=== PATIENT | female | born 1965 | race Caucasian/White ===

== ENCOUNTER 2020-04-20 15:13 | Inpatient (IN) | payer OTHER ==
[2020-04-20] VITALS (10 sets, daily range): BP systolic 107–162; BP diastolic 68–100; BMI 16.5
[~2020-04-20] VITALS: Ht 157.5 cm; Wt 45.5 kg
[2020-04-20] MEDS ORDERED: XANAX0.5 MG PO (15:44)
[2020-04-20] MEDS ORDERED: LISINOPRIL40 MG PO (15:44)
[2020-04-20] MEDS ORDERED: PROCARDIA XL60 MG PO (15:44)
[2020-04-20] MEDS ORDERED: CATAPRES0.2 MG PO (15:44)
[2020-04-20 15:59] LABS: BASOPHILS 0.2 % (0-2); EOSINOPHILS 0.9 % (0-7); HEMATOCRIT 48.8 % (36.0-48.0); HEMOGLOBIN 13.9 g/dL (12-16); IMMATURE GRANULOCYTES 0.2 % (0-5); LYMPHOCYTES 16.6 % (15-50); MCH 29.4 pg (26.0-34.0); MCHC 28.5 g/dL (31.0-37.0); MCV 103.4 fL (80.0-100.0); MEAN PLATELET VOLUME 10.2 fL (7.4-10.4); MONOCYTES 3.9 % (2-11); NEUTROPHILS 78.2 % (40-80); PLATELET COUNT 303 10x3/uL (130-400); RBC 4.72 10x6/uL (4.00-5.40); RDW 15.4 % (11.5-14.5)
[2020-04-20 16:17] LABS: APTT 30.8 SECONDS (22.8-39.4); INR 0.87 (0.85-1.17); PROTIME 11.8 SECONDS (11.6-15.0)
[2020-04-20 16:22] LABS: CALC OSMOLALITY 285 mosm/kg (275-300); CALCIUM 8.6 mg/dL (8.5-10.1); CHLORIDE - SERUM 103 mmol/L (98-107); GLUCOSE 164 mg/dL (74-106); POTASSIUM - SERUM 3.8 mmol/L (3.5-5.1); SODIUM 141 mmol/L (136-145); UREA NITROGEN 15 mg/dL (7-18); eGFR NON AFRICAN AMERICAN 62 mL/min (90-120)
[2020-04-20 16:32] LABS: ALBUMIN 3.1 g/dL (3.4-5.0); ALKALINE PHOSPHATASE 152 U/L (30-120); ALT (SGPT) 25 U/L (10-68); BILIRUBIN - TOTAL 0.21 mg/dL (0.2-1.3); CKMB 1.3 U/L (0.0-3.6); CREATINE KINASE 37 UL (21-215); PRO BNP 1638 pg/mL (0-125); PROTEIN - SERUM 7.5 g/dL (6.4-8.2); TROPONIN-I < 0.017 ng/mL (0.000-0.060)
[2020-04-20 18:01] LABS: THYROID STIMULATING HORMONE 1.01 uIU/mL (0.36-3.74)
[2020-04-21] VITALS (15 sets, daily range): BP systolic 95–160; BP diastolic 55–110; Ht 157.5 cm; Wt 45.5 kg
--- NOTE | 2020-04-21 00:10 | NUR ---
PT WOKE UP AND REPORTS FEELING ANXIOUS. ATIVAN GIVEN ORDERED. PT STATES SHE FEELS BETTER. O2 SAT 100% ON BIPAP 40% VSS. SHE DENIES NEEDS OR PAIN. CALL LIGHT WITHIN REACH AND BED IS LOW.
--- NOTE | 2020-04-21 03:47 | NUR ---
PT RESTING WITH EYES CLOSED. O2 SAT 100% ON BIPAP. AROUSES WITH VERBAL STIMULI. WAITING FOR PT TO VOID AGAIN TO COLLECT URINE SPECIMEN FOR UA/CS AND UDS. HER LAST SAMPLE WAS THROWN OUT RIGHT BEFORE THE ORDER FOR UDS WAS PUT IN. HER CALL LIGHT IS WITHIN REACH. BED IS LOW.
--- NOTE | 2020-04-21 04:33 | NUR ---
PTS AT BEDSIDE. PT WANTS TO TAKE BIPAP OFF SO SHE CAN DRINK COFFEE. PLACED HER ON 4L NC. O2 SAT 98%. DENIES DIFFICULTY BREATHING. SHE DENIES NEEDS AT THIS TIME. CALL LIGHT WITHIN REACH.
[2020-04-21 06:17] LABS: BASOPHILS 0.1 % (0-2); EOSINOPHILS 0 % (0-7); HEMATOCRIT 45.5 % (36.0-48.0); HEMOGLOBIN 13.4 g/dL (12-16); IMMATURE GRANULOCYTES 0.3 % (0-5); LYMPHOCYTES 3.3 % (15-50); MCH 29.9 pg (26.0-34.0); MCHC 29.5 g/dL (31.0-37.0); MCV 101.6 fL (80.0-100.0); MEAN PLATELET VOLUME 10.7 fL (7.4-10.4); MONOCYTES 0 % (2-11); NEUTROPHILS 96.3 % (40-80); PLATELET COUNT 266 10x3/uL (130-400); RBC 4.48 10x6/uL (4.00-5.40); RDW 15.9 % (11.5-14.5); WBC 7.9 10x3/uL (4.8-10.8)
--- NOTE | 2020-04-21 06:19 | NUR ---
O2 SAT 86% ON 4L NC. PT SLEEPING BUT EASILY AROUSED. PLACED HER BACK ON THE BIPAP AT 40% ORDERED. O2 SAT NOW 95%. NO DISTRESS NOTED. PT DENIES NEEDS. CALL LIGHT WITHIN REACH. BED LOW. URINE SPECIMEN SENT TO LAB.
[2020-04-21 06:34] LABS: BILIRUBIN NEGATIVE (NEGATIVE); GLUCOSE NEGATIVE (NEGATIVE); KETONE NEGATIVE (NEGATIVE); NITRITE NEGATIVE (NEGATIVE); SPECIFIC GRAVITY 1.015 (1.005-1.020); UROBILINOGEN NORMAL (NORMAL)
[2020-04-21 06:34] LABS: ALBUMIN 3.1 g/dL (3.4-5.0); ANION GAP 9.5 mmol/L (8-16); BILIRUBIN - TOTAL 0.16 mg/dL (0.2-1.3); CALCIUM 8.5 mg/dL (8.5-10.1); CARBON DIOXIDE 35.9 mmol/L (21.0-32.0); CREATININE - SERUM 1.1 mg/dL (0.6-1.3); MAGNESIUM - SERUM 1.8 mg/dL (1.8-2.4); POTASSIUM - SERUM 3.4 mmol/L (3.5-5.1)
[2020-04-21 06:47] LABS: UDS - AMPHET POSITIVE QUAL (NEGATIVE); UDS - BARB NEGATIVE QUAL (NEGATIVE); UDS - BENZO POSITIVE QUAL (NEGATIVE); UDS - COCAINE NEGATIVE QUAL (NEGATIVE); UDS - OPIATE NEGATIVE QUAL (NEGATIVE); UDS - PCP NEGATIVE QUAL (NEGATIVE); UDS - THC NEGATIVE QUAL (NEGATIVE)
--- NOTE | 2020-04-21 09:56 | NUR ---
0700 PT RECIVED ALERT AND ORIENTED VSS DENIES PAIN NO NEEDS NOTED SEE SHIFT ASSESSMENT FOR DETAILS 0930TOOK AM MEDS WITHOUT DIFFICULTY, REFUSED BATH
--- NOTE | 2020-04-21 16:21 | NUR ---
1100 PT REFUSED BATH 1300 ATE 75% LUNCH
--- NOTE | 2020-04-21 16:33 | NUR ---
PT TO TRANSFER TO 2138 REPORT CALLED TO TODD
--- NOTE | 2020-04-21 16:47 | NUR ---
RECIEVED PT FROM ICU. RR EVEN AND UNLABORED ON 2L NC. SHE HAS A R FA PIV THAT IS SL. BED LOCKED AND IN LOWEST POSITION, CALL LIGHT WITHIN REACH. WILL CTM
--- NOTE | 2020-04-21 19:10 | NUR ---
BEDSIDE REPORT RECEIVED, PT CARE ASSUMED. INTRODUCED SELF AND WROTE NAME ON BOARD. PT LYING IN BED, WATCHING TV, AAOX4. DENIES ANY NEEDS AT THIS TIME. BED IN LOWEST, SR X1, CALL LIGHT WITHIN REACH. BOYFRIEND AT BEDSIDE. WILL CTM.
--- NOTE | 2020-04-21 23:18 | NUR ---
PT HOLLARING OUT, C/O "WHATEVER IS GOING IN HAS BEEN BURNING." REINFORCED FOR PT TO USE CALL LIGHT WHEN SHE NEEDS SOMETHING, STATES "I DON'T HANG OUT IN HOSPITALS, I DIDN'T KNOW WHAT TO DO." REINFORCED, PT STATES "IT JUST KEPT GETTING WORSE." REINFORCED, PT YELLS, "I HEARD YOU ALL THREE TIMES YOU SAID IT." DISCONNECTED FROM IV. PT ASKING WHY SHE IS RECEIVING ANTIBIOTIC, PT AND REPORT NO ANTIBIOTIC THERAPY SINCE ADMISSION. EXPLAINED SHE HAD RECEIVED THE SAME ANTIBIOTIC THE PREVIOUS NIGHT WHILE IN ICU. DENIES COUGH, DENIES PHLEGM, DENIES SOB. REQUESTING PRN IV ATIVAN FOR AGITATION, EXPLAINED A NEW PIV WOULD NEED TO BE STARTED SINCE THE CURRENT ONE WAS HURTING. PT REFUSING RESITE AT THIS TIME, STATES "IT ONLY HURT WHEN THE ANTIBIOTIC WAS GOING IN." NS FLUSH WITHOUT DIFFICULTY, NO C/O PAIN AT SITE.
[2020-04-22] VITALS (13 sets, daily range): BP systolic 86–150; BP diastolic 52–98
--- NOTE | 2020-04-22 | NUR ---
ADMINISTERED PRN IV ATIVAN, PER ORDER. NO C/O UPON ADMINISTRATION AND FLUSHING, NO S/S OF INFILTRATION AT PIV SITE. QUESTIONS ANSWERED. BED IN LOWEST, SRX1, CALL LIGHT WITHIN REACH. BOYFRIEND AT BEDSIDE. WILL CTM.
--- NOTE | 2020-04-22 01:37 | NUR ---
SCHEDULED IV SOLU-MEDROL ADMINISTERED, PER ORDER. NO C/O PAIN AT PIV SITE, NO S/S OF INFILTRATION OR INFLAMMATION, FLUSHES WITHOUT ISSUE. BED IN LOWEST, SRX1, CALL LIGHT WITHIN REACH. BOYFRIEND AT BEDSIDE. WILL CTM.
--- NOTE | 2020-04-22 04:31 | NUR ---
PT WANTING TO KNOW WHEN SHE IS GOING HOME, SAYS SHE "HAS A YEARLY THING TO GET TO TODAY. I WOULD HAVE PUSHED IT BACK HAD I KNOWN I WAS GOING TO BE HERE ALL DAY. IT WASN'T TOLD TO ME THAT I WAS STAYING ANOTHER DAY." INFORMED PT THAT THERE WERE NO DISCHARGE ORDERS FOR HER TODAY. ASKING WHEN THE DR'S WOULD BE AROUND THIS AM, INFORMED PT THAT THE DR'S ROUND AT DIFFERENT TIMES. STATES, "MY KIDS ARE WAITING FOR ME, THEY'VE BEEN WAITING FOR ME TO BURY MY FOR 10 YEARS. KAHLIL LIED TO ME ABOUT THIS WHOLE THING, HE KNEW I HAD PLANS THIS WEEKEND TO BURY MY ." EXPLAINED TO PT HER DISPOSITION WHEN SHE PRESENTED TO THE ER, STATES "WELL THEN, I'D BE GETTING BURIED WITH HIM TODAY. I'M NOT CONCERNED ABOUT MY MEDICAL STATUS, I'M WORRIED ABOUT MY KIDS, LITTLE KIDS, AND ABOUT WHAT THEY'LL NEED TO DO TODAY." BOYFRIEND NOT AT BEDSIDE AT THIS TIME.
--- NOTE | 2020-04-22 04:57 | NUR ---
SPOKE WITH WALTER ANDREWS. STATED SHE WANTS PT TO BE SEEN DURING ROUNDS THIS MORNING BEFORE SHE LEAVES. INFORMED PT, PT STILL UPSET. STATES "NONE OF MY FAMILY IS ANSWERING MY CALLS. I HAVEN'T TALKED TO ANYONE, HE JUST LEFT ME UP HERE AND LIED TO ME ABOUT THIS WHOLE THING. AND I'M NOT GOING TO BE TOLD WHAT I CAN DO AND WHAT I CAN'T DO." BED IN LOWEST, SRX1, CALL LIGHT WITHIN REACH. WILL CTM.
[2020-04-22 06:11] LABS: HEMATOCRIT 44.7 % (36.0-48.0); HEMOGLOBIN 13.4 g/dL (12-16); MCH 29.5 pg (26.0-34.0); MCV 98.5 fL (80.0-100.0); MEAN PLATELET VOLUME 10.5 fL (7.4-10.4); PLATELET COUNT 346 10x3/uL (130-400); RBC 4.54 10x6/uL (4.00-5.40); RDW 15.9 % (11.5-14.5); WBC 30.8 10x3/uL (4.8-10.8)
--- NOTE | 2020-04-22 06:24 | NUR ---
BOYFRIENDKAHLIL, BACK TO ROOM.
[2020-04-22 06:43] LABS: ALBUMIN 2.8 g/dL (3.4-5.0); ANION GAP 8.9 mmol/L (8-16); BILIRUBIN - TOTAL 0.27 mg/dL (0.2-1.3); CALCIUM 8.5 mg/dL (8.5-10.1); CARBON DIOXIDE 37.1 mmol/L (21.0-32.0); CREATININE - SERUM 2.6 mg/dL (0.6-1.3); MAGNESIUM - SERUM 1.7 mg/dL (1.8-2.4); PROTEIN - SERUM 6.4 g/dL (6.4-8.2)
--- NOTE | 2020-04-22 06:43 | NUR ---
PT VOMITED IN FLOOR X2, BROWN LIQUID NOTED. PRN IV ZOFRAN ADMINISTERED, PER ORDER.
[2020-04-22 06:52] LABS: LYMPHOCYTES 2 % (15-50); MONOCYTES 1 % (2-11); NEUTROPHILS 97 % (40-80); PLATELET ESTIMATE NORMAL
[2020-04-22 06:53] LABS: POIKILOCYTOSIS OCC; ROULEAUX OCC
[2020-04-22 10:24] LABS: HEMATOCRIT 45.4 % (36.0-48.0); HEMOGLOBIN 13.9 g/dL (12-16); MCH 30.2 pg (26.0-34.0); MCHC 30.6 g/dL (31.0-37.0); MCV 98.5 fL (80.0-100.0); MEAN PLATELET VOLUME 10.3 fL (7.4-10.4); PLATELET COUNT 341 10x3/uL (130-400); RBC 4.61 10x6/uL (4.00-5.40); RDW 15.9 % (11.5-14.5); WBC 33.2 10x3/uL (4.8-10.8)
[2020-04-22 10:25] LABS: ANION GAP 4.4 mmol/L (8-16); CALCIUM 8.6 mg/dL (8.5-10.1); CARBON DIOXIDE 38.7 mmol/L (21.0-32.0); CREATININE - SERUM 2.7 mg/dL (0.6-1.3); POTASSIUM - SERUM 4.1 mmol/L (3.5-5.1)
[2020-04-22 10:31] LABS: ALBUMIN 3.3 g/dL (3.4-5.0); BILIRUBIN - TOTAL 0.32 mg/dL (0.2-1.3); PROTEIN - SERUM 7.5 g/dL (6.4-8.2)
[2020-04-22 10:40] LABS: MONOCYTES 1 % (2-11); NEUTROPHILS 99 % (40-80); PLATELET ESTIMATE NORMAL
[2020-04-22 10:41] LABS: ANISOCYTOSIS OCC; TARGET CELLS OCC
[2020-04-22 11:29] LABS: AMYLASE - SERUM 76 U/L (25-115); LIPASE 84 U/L (73-393)
[2020-04-22 14:14] LABS: BILIRUBIN NEGATIVE (NEGATIVE); GLUCOSE NEGATIVE (NEGATIVE); KETONE NEGATIVE (NEGATIVE); NITRITE NEGATIVE (NEGATIVE); SPECIFIC GRAVITY 1.015 (1.005-1.020); UROBILINOGEN NORMAL (NORMAL)
[2020-04-22 14:16] LABS: BACTERIA FEW /hpf (NEGATIVE); EPITHELIAL CELLS 0-5 /hpf (0-5); RED CELLS - URINE 0-5 /hpf (0-5); WHITE CELLS - URINE 0-5 /hpf (NEGATIVE)
[2020-04-22 14:17] LABS: HYALINE CAST OCC /lpf (NONE SEEN); YEAST RARE /hpf (NONE SEEN)
--- NOTE | 2020-04-22 14:17 | NUR ---
1400 PT RECIEVED FROM FLOOR AFTER REPORT GIVEN...PT IS CONSTANTLY MOVING AND KEEPS YELLING HELP ME AND CURSEING.. SHE WILL ANSWER QUESTIONS INTERMITTENTLY.. IS EVASIVE WHEN ASKED IF SHE HAS TAKEN ANY STREET DRUGS SINCE BEING IN THE HOSPITAL... LOOKING BACK AT LABS FROM SHE WAS POSITVE FOR METH... SR DURAN CALLED ....PT SPEECH IS RAMBLING AND GARBLED 1410 RETURNED CALL UPDATE IS GIVEN.. SHE COULD HERE PATIENT YELLING OUT.. UDS ORDERED AT THIS TIME. AND AN IM DOSE OF [place] .. 1420 DR LYNN IN TO SEE PATIENT.. UPDATE IS GIVEN.. PT REMAINS RESTLESS AND GARBLED SPEECH .... UDS OBTAINED PT VOIDED IN BEDPAN WHEN REQUESTED TO DO SO..
[2020-04-22 15:27] LABS: UDS - AMPHET POSITIVE QUAL (NEGATIVE); UDS - BARB NEGATIVE QUAL (NEGATIVE); UDS - BENZO POSITIVE QUAL (NEGATIVE); UDS - COCAINE NEGATIVE QUAL (NEGATIVE); UDS - OPIATE NEGATIVE QUAL (NEGATIVE); UDS - PCP NEGATIVE QUAL (NEGATIVE); UDS - THC NEGATIVE QUAL (NEGATIVE)
--- NOTE | 2020-04-22 15:42 | NUR ---
PATIENT NOT ABLE TO ANSWER MRI SCREENING. PATIENT NOT ABLE TO BE STILL FOR MRI. CHECK TOMORROW, PER Joselin MIRELES
--- NOTE | 2020-04-22 15:59 | NUR ---
1500 WITHOUT CHANGES IN THE PATIENT STATUS.CONTINUES TO BE RESTLESS WITH INTERMITTENT YELLING OUT.. SHE IS NOT MAINTAINING SAFTY WRIST RESTRAINTS ARE ON.. AWAITING RESULTS OF UDS.. 1540 BOYFRIEND CAME INTO UNIT TO SEE PATIENT.. WANTING RESTRAINTS OFF OF PATIENT .. EXPLAINED TO HIM THE REASONS OF RESTRAINT USE, IN THIS CASE TO MAINTAIN PATIENT SAFETY.. HE IS VERY CONCERNED THAT SHE HAS HAD A HEAD BLEED IN THE PAST AND NEEDS AN MRI EXPLAINED THAT PATIENT MUST LIE STILL FOR THIS PROCEDURE AND AT THIS POINT SHE UNABLE TO REMAIN STILL
--- NOTE | 2020-04-22 16:13 | NUR ---
1545 GRAIN ROASTER IN TO SEE ABOUT MRI/CT SCAN WATCHED PATIENT.. STATED THAT SHE WAS NOT A CANDIDATE FOR EITHER AT THIS TIME..
--- NOTE | 2020-04-22 16:20 | NUR ---
1600 WITHOUT VISITOR.. KEVIN STATES THAT HE IS NOT COMING IN TO SEE PATIENT AT THIS TIME HE FEELS HE MADE HER WORSE THE LAST TIME HE WAS IN...
--- NOTE | 2020-04-22 18:37 | NUR ---
1700 BUSINESS DEVELOPMENT COORDINATOR IN TO DO ECHO.. DISCOVERED IT WAS A DUPLICATE ORDER AND DONE YESTERDAY.. PATIENT DID LAY STILL BRIEFLY WHILE SHE WAS IN DOOM HOOKING HER UP.. 1800 CT SCAN PEOPLE HERE
--- NOTE | 2020-04-22 18:43 | NUR ---
1830 PT REMAINS UNCO- OPERATIVE CT HELD FOR NOW..
--- NOTE | 2020-04-22 20:53 | NUR ---
1899-ASSESSMENT COMPLETED. PATIENT NOT AWAKE, EVEN TO VERBAL STIMULI. 1944-ORDER REC'D FROM DR. DUARN VIA PHONE FOR CT HEAD D/T PT UNABLE TO GET MRI AT THIS TIME. 2012-RETURNED FROM CT. NURSE ACCOMPANIED. PT IS NOW AWAKE, CONFUSED. SITTING UP IN BED. RESTRAINTS ON. TRYING TO GET OOB AND TAKE EVERYTHING OFF. GARBLED SPEECH. UNABLE TO OBTAIN ABD CT D/T MOVEMENT. BED ALARM ON 2029- BOYFRIEND, KAHLIL, HERE. UPDATED GIVEN. PATIENT SITTING UP IN BED, LEANED OVER. KAHLIL WENT INTO ROOM AND ASKED NURSE WHAT TO DO. KAHLIL BEGAN TO TRY TO HELP PT LAY BACK. PT BEGAN TO YELL AT HIM, "HELP ME LAY DOWN, I DON'T WANT TO LAY BACK." PT BEGAN TO YELL AND CUSS SINCE KAHLIL WOUND NOT UNDO RESTRAINTS.
--- NOTE | 2020-04-22 20:57 | NUR ---
2039- BOYFRIEND, KAHLIL, KEPT TALKING TO PT ABOUT CALMING DOWN. PT KEPT YELLING, "I HATE YOU." INFORMED KAHLIL THAT IT PROBABLY NOT THE BEST TIME FOR VISITORS. KAHLIL ASKS NURSE IF THERE WAS ANYTHING TO DO OR GIVE PT. INFORMED KAHLIL OF ORDER FOR ATIVAN BUT STILL INSISTED THAT HE NEEDED TO LEAVE TOO. KAHLIL ASKED NURSE WHY SHE WAS ACTING LIKE THIS, AND THIS NURSE SAID IT MORE THAN LIKELY HAD TO DO WITH WHATEVER THE PATIENT IS COMING OFF OF INCLUDING METH, ACCORDING TO THE UDS OR WITHDRAWING FROM. KAHLIL BEGAN RAISING HIS VOICE AT THIS NURSE SAYING "YOU DON'T KNOW WHAT YOU'RE TALKING ABOUT, SHE DID ONE AND FRIDAY, BUT SHE DRINKS TEQUILA EVERYDAY FOR YEARS."
--- NOTE | 2020-04-22 21:04 | NUR ---
PATIENT CONT TO YELL. GAVE PRN ATIVAN VIA IV. PAULA, CHARGE NURSE, TRIED TO TALK WITH PATIENT. PATIENT YELLED, "YOU'RE A FUCKING WHORE."
--- NOTE | 2020-04-22 21:15 | NUR ---
PT EYES CLOSED, BUT TALKING WITH NURSE. LAYING BACK IN BED. PT TOOK ALL PILLS WITHOUT DIFFICULTY. NOT YELLING.
--- NOTE | 2020-04-22 21:40 | NUR ---
RIGHT FOREARM PIV INFILTRATED. ATTEMPTED PIV IN LEFT HAND BUT PATIENT JERKED HAND, PIV UNSUCCESSFUL. ATTEMPTED LEFT BREAST BUT UNSUCCESSFUL. CHARGE NURSE GOT PIV 20 G TO RIGHT BREAST.
--- NOTE | 2020-04-22 22:50 | NUR ---
PATIENT SITTING UP IN BED. TRYING TO GET UP. PATIENT IS YELLING "PLEASE KAHLIL LET ME OUT OF HERE, KAHLIL GET THESE THINGS OFF OF ME. LET ME GO." TRIED TO EDUCATE PATIENT THAT KAHLIL ISN'T HERE BUT WAS UNSUCCESSFUL.
[2020-04-23] VITALS (24 sets, daily range): BP systolic 112–185; BP diastolic 72–113
--- NOTE | 2020-04-23 03:58 | NUR ---
2208- BOYFRIEND, KAHLIL, CALLED. PASSCODE GIVEN. UPDATE GIVEN TO HIM. KAHLIL TOLD THIS NURSE ABOUT SEVERAL FAMILY MEMBERS DYING BACK IN 2013 JUST BEFORE A STROKE SHE HAD. KAHLIL ASKED IF HE COULD BRING HIS RESTRAINT HE HAS AT HOME THAT GOES UNDER THE BED AND OVER HER ABDOMEN. INFORMED KAHLIL THAT WAS NOT A RESTRAINT WE USE HERE AND EDUCATED ON THE USE OF RESTRAINTS AND POLICY. 2299-REFUSED BIPAP. STARTED YELLING AND SHAKING HER HEAD AGAINTS THE BED. 99-PATIENT CONT TO HAVE GARBLED SPEECH. CONT TO YELL. CONFUSION CONT. PATIENT SAID SHE WAS AT HOME ON THE FLOOR. ATTEMPTED TO REORIENT BUT UNSUCCESSFUL. 235- CALLED PRICE ANALYST FOR DR. DURAN D/T BP 161/90 AND SINUS TACHYCARDIA OF 154. TRIED TO GET PT TO TAKE SLOW, DEEP BREATHS.
[2020-04-23 04:00] LABS: BASOPHILS 0 % (0-2); EOSINOPHILS 0 % (0-7); HEMATOCRIT 46.8 % (36.0-48.0); HEMOGLOBIN 14.2 g/dL (12-16); IMMATURE GRANULOCYTES 0.3 % (0-5); LYMPHOCYTES 0.8 % (15-50); MCH 29.5 pg (26.0-34.0); MCHC 30.3 g/dL (31.0-37.0); MCV 97.3 fL (80.0-100.0); MEAN PLATELET VOLUME 10.5 fL (7.4-10.4); MONOCYTES 1.3 % (2-11); NEUTROPHILS 97.6 % (40-80); PLATELET COUNT 296 10x3/uL (130-400); RBC 4.81 10x6/uL (4.00-5.40); WBC 23.3 10x3/uL (4.8-10.8)
--- NOTE | 2020-04-23 04:08 | NUR ---
0238-SPOKE WITH DARRYL SOLORIO APRN. INFORMED OF THE ONE TIME ORDER FROM ADMISSION OF CLONIDINE THAT WAS STILL ON JAN AND GOT AN ORDER TO GIVE ONCE NOW. NO OTHER ORDERS GIVEN AT THIS TIME. PATIENT TOLERATED MEDICINE WITHOUT DIFFICULTY AND WATER WELL.
--- NOTE | 2020-04-23 04:11 | NUR ---
PATIENT LAYING IN BED. PATIENT DOESN'T OPEN EYES EVEN WHEN ASKED TOO. NC HIGH FLOW ON AT 4L. PATIENT TRYING TO GET OOB BUT IS NOT YELLING. BED ALARM ON.
[2020-04-23 04:32] LABS: ALBUMIN 3.2 g/dL (3.4-5.0); ALKALINE PHOSPHATASE 122 U/L (30-120); ALT (SGPT) 28 U/L (10-68); BILIRUBIN - TOTAL 0.42 mg/dL (0.2-1.3); CALC OSMOLALITY 290 mosm/kg (275-300); CALCIUM 8.8 mg/dL (8.5-10.1); CARBON DIOXIDE 37.2 mmol/L (21.0-32.0); CHLORIDE - SERUM 104 mmol/L (98-107); GLUCOSE 117 mg/dL (74-106); MAGNESIUM - SERUM 1.9 mg/dL (1.8-2.4); POTASSIUM - SERUM 4.6 mmol/L (3.5-5.1); PROTEIN - SERUM 7.2 g/dL (6.4-8.2); SODIUM 141 mmol/L (136-145); UREA NITROGEN 37 mg/dL (7-18); URIC ACID 5.4 mg/dL (2.6-7.2)
[2020-04-23 04:35] LABS: CREATINE KINASE 867 UL (21-215); CREATININE - SERUM 1.5 mg/dL (0.6-1.3); eGFR NON AFRICAN AMERICAN 39 mL/min (90-120)
--- NOTE | 2020-04-23 06:11 | NUR ---
SOILED LINEN. GAVE CHG BATH WHILE CHANGING LINEN. PATIENT CALM AND FOLLOWING DIRECTIONS.
--- NOTE | 2020-04-23 09:31 | EC ---
PATIENT:ERIBERTO VILLANUEVA DATE OF SERVICE: 04/20/20 SEX: F MEDICAL RECORD: [id number] DATE OF : [birth year] LOCATION:[facility] D230 AGE OF PATIENT: 54 ADMISSION DATE: 04/20/20 REFERRING PHYSICIAN: INTERPRETING PHYSICIAN: NEGRO KAY MD ECHOCARDIOGRAM REPORT ECHO CHARGES 4 ECHO COMPLETE Date: 04/21/20 CLINICAL DIAGNOSIS: DYSPNEA ECHOCARDIOGRAPHIC MEASUREMENTS (adult normal given) AC root (d.<3.7cm) 2.5 cm LV Septum d (<1.2 cm> 0.9 cm Valve Excursion 1.4 cm LV Septum (systole) 1.5 cm Left Atria (s.<4.0cm> 3.4 cm LVPW d(<1.2cm) 1.1 cm RV (d.<2.3cm) 2.3 cm LVPW (sytole) 1.3 cm LV diastole(<5.6CM) 3.5 cm MV E-F(>70mm/sec) cm LV systole 1.7 cm LVOT Diameter 1.3 cm MV exc.(>10mm) cm Est.ejection fraction (50-75%) % DOPPLER: LVIT cm/sec A 131 cm/sec E cm/sec LA cm/sec RVSP 19.2 mmHg LVOT 142 cm/sec AOP1/2T m/s Asc. Ao 147 cm/sec RVOT 82 cm/sec RA cm/sec PA 76 cm/sec AV Gradient Peak 8.6 mmHg AV Mean 4.9 mmHg AV Area 1.3 cm MV Gradient Peak 9.0 mmHg MV Mean 5.9 mmHg MV Area cm COMMENTS: Perioperative Educator: Eduardo [facility] Pourer Crane Ladle: 3 Dr. Carter TAPE# PACS Pericardial Effusion N DATE OF SERVICE: Adequate 2D, color flow imaging, spectral Doppler, and M-Mode. No LVH. LV internal dimensions is normal. Wall motion is normal. EF is greater than or equal to 55%. Aortic valve is tricuspid. There appears to be a vegetation on the noncoronary cuff. There is no significant AI by color flow imaging. Left atrium is normal. Mitral valve shows no prolapse. Trace MR. Right-sided chambers are grossly normal. Trace TR. ECHOCARDIOGRAM REPORT [id number] ERIBERTO VILLANUEVA IMPRESSION: Probable vegetation, aortic valve, noncoronary cusp. Would consider ADELAIDE to further further delinate anatomy if indicated. TRANSINT:[id number] Voice Confirmation ID: [id number] DOCUMENT ID: [id number] NEGRO KAY MD at 0931 CC: [id number] DICTATION DATE: 04/22/20 1014 MANAGER OF RECRUITING: 04/22/20 1028 ADM IN [facility] [address] [id number]
--- NOTE | 2020-04-23 16:22 | NUR ---
0700 REPORT RECIEVED AND CARE ASSUMED OF PATIENT.. SEE FLOW SHEET FOR SHIFT ASSESMENT 0800 BOYFRIEND IN TO SEE PATIENT.. IT IS BROUGHT TO MARIANELA ATTENTION THAT HE NEEDS POWER OF PUBLIC ADDRESS SYSTEM OPERATOR AND MEDICAL PROXY TO SIGN FOR PATIENTS PROCEDURES AND MAKING DECISIONS FOR HER.. HE ARGUED STATING HE HAS ALWAYS SIGNED EXLAINED TO HIM THAT THE OLDEST CHILD IS THE DECISION MAKER IF HE CANNOT PROVIDE PROOF OF POA/MED PROXY.. HE STATED HE WOULD HAVE TO CALL ME BACK WITH THE SON RORY VILLANUEVA PHONE NUMBER... HE THEN LEFT THE UNIT.. 0950 PT IS AWAKE AT THIS TIME.. SHE IS ABLE TO TAKE HER MEDS ORALLY AND SHE VOIDED IN THE BEDPAN.. 400 CC CLEAR URINE.. 1020 X RAY HERE TO TRANSPORT THE PATIENT TO CT SCAAN.. BOYFRIEND CALLED BACK WITH SON RORY PHONE NUMBER [phone] SCAN PATIENT TOLERATED WELL 1130 NEW PIV IN RIGHT UPPER FOREARM STARTED WITH 20 GA CATH.. IV FLUID D5NS INITIATED AT 50CC/HR... AND ANTIBIOTICS ARE STARTED.. DR DURAN IN TO SEE PATIENT AND UPODATE IS GIVEN.. STATED THAT SHE HAS CONSULTED DR GRECO FOR PSYCH EVAL IN LIGHT OF HER UDS AND HER SUDDEN LOC CHANGE OF YESTERDAY..IT IS VERY DIFFERENT FROM HER INITIAL BASELINE STATED BY HER BOYFRIEND AND STAFF PT FREDI WITH SAME TO SIMILAR MENTATION TODAY SHE WAS RECIEVED IN THE ICU YESTERDAY YOLANDA STATES THAT THE POSITIVE UDS THAT WAS DONE HAS NOTHING TO DO WITH HER CURRENT STAUS IT IS ALL DUE TO MEDS THAT HAVE BEEN ADMINISTERED SINCE HER ADMISSION HERE. 1200 BOYFRIENWilla IN TO SEE PATIENT DID NOT STAY WITH PATIENT FOR AN EXTENDED TIME 1230 DR VARELA PSYCH IN TO SEE PATIENT .. PT IS OBTUNDED AND NOT CONVERSIVE WITH HIM STATED HE WILL COME BACK TOMORROW TO SEE PATIENT A BRIEF HISTORY AND UPDATE IS GIVEN TO HIM AND HE FEELS THAT PATIENT VISITATION BE MONITORED CLOSLY 1430 BOYFRIEND CALLED INTO UNIT AND WANTS TO COME SEE HER NOW.. EXPLINED THE VISITATION TIMES AND RULES PORSCHE AT THIS TIME WITH THE COVID19 HE IS NOT UNDERSTANDING 1500 DR CHEN A FRIEND OF THE FAMILY CALLED INTO UNIT AND WANTS TO KNOW WHY WE ARE NOT ALLOWING BOYFRIEND IN EXPLAINED TO HIM THE VISITATION RULES HE STATED HE WOULD SPEAK WITH HIM AND HUNG UP... 1530 WEIGHER PACKING HERE STATED THAT DR CHEN HAD CALLED HER TRYING TO GET THE RULES CHANGED FOR THE BOYFRIEND.. IT IS EXPLAINED TO THE WEIGHER PACKING THE SITUATION RE THE BOYFRIEND .. SHE STATED SHE WOULD LET APRIL KNOW... 1545 COMPLETE BATH AND LINEN CHANGE DONE PT VOIDED IN BEDPAN 500 CC CLEAR URINE.. 1600BOYFRIEND IN TO SEE PATIENT.. HE IS STILL NOT UNDERSTANDING THE RULES OF VISITATION , AND DENYING THAT THE METH THE PATIENT IS POSITIVE FOR HAS A POSSIBLE BEARING ON HER CURRENT CONDITION.. HE STILL FEEELS THAT IT IS THE MEDICATION WE HAVE GIVEN HER THAT HAS CAUSED HER CURRENT STATE OF LOC... 1615 BOYFRIEND CONCERNED ABOUT BP STAING THE DR IN [place] HAVE HER ON DIFFERENT DRUGS AND WHY CANT WE JUST CONTINUE THOSE EXPLAINED THAT A NURSE I CAN ONLY DO WHAT THE DR ORDERS AND I WOULD CALL HER AND LET HER KNOW.. HYDRALAZINE ORDERED FOR BP BY DR AT THIS TIME IF PT IS UNABLE TO SWALLOW CLONIDINE TABS
--- NOTE | 2020-04-23 18:26 | NUR ---
1800 MRI HERE AND SON CALLED FOR PERMIT RELEASE TO DO HE STATED IT WAS OK FOR KAHLIL THE BOYFRIEND TO FILL OUT QUESTIONEER HE PROBABLY KNOWS MORE ABOUT PATIENTS PAST MED HISTORY THAN ANYONE.. THIS IS CONFIRMED BY 2 NURSES.. FORM FILLED OUT AND READY FOR GUEST ROOM ATTENDANT.. 183 GUEST ROOM ATTENDANT HERE FORM HANDED TO HER AND KAHLIL CALLED FOR CONFIRMATION OF SOME OF THE QUESTIONS GUEST ROOM ATTENDANT GISELLE TALKED WITH HIM.. MRI NOT BEING DONE AT THIS TIME...
--- NOTE | 2020-04-23 20:00 | NUR ---
ATIVAN WAS NOT GIVEN. UNABLE TO WASTE IN PYXIS. WASTED WITH PAULA MONTALVO RN.
[2020-04-24] VITALS (23 sets, daily range): BP systolic 63–167; BP diastolic 74–105
[2020-04-24 03:06] LABS: IMMUNOGLOBULIN E 15 IU/mL (6-495)
[2020-04-24 04:26] LABS: BASOPHILS 0 % (0-2); EOSINOPHILS 0 % (0-7); HEMATOCRIT 50.8 % (36.0-48.0); HEMOGLOBIN 15.4 g/dL (12-16); IMMATURE GRANULOCYTES 0.2 % (0-5); LYMPHOCYTES 3.2 % (15-50); MCH 29.1 pg (26.0-34.0); MCHC 30.3 g/dL (31.0-37.0); MEAN PLATELET VOLUME 10.2 fL (7.4-10.4); MONOCYTES 4.7 % (2-11); NEUTROPHILS 91.9 % (40-80); PLATELET COUNT 300 10x3/uL (130-400); RBC 5.29 10x6/uL (4.00-5.40)
[2020-04-24 04:32] LABS: WBC 12.7 10x3/uL (4.8-10.8)
[2020-04-24 05:10] LABS: ALBUMIN 3.2 g/dL (3.4-5.0); ANION GAP 6.3 mmol/L (8-16); BILIRUBIN - TOTAL 0.6 mg/dL (0.2-1.3); CARBON DIOXIDE 36.3 mmol/L (21.0-32.0); CREATININE - SERUM 1.3 mg/dL (0.6-1.3); POTASSIUM - SERUM 4.6 mmol/L (3.5-5.1); PROTEIN - SERUM 7.2 g/dL (6.4-8.2)
--- NOTE | 2020-04-24 06:32 | NUR ---
1900-ASSESSMENT COMPLETED. LETHARGIC. O2 AT 2L VIA NC. 1939-MRI HERE FOR PATIENT. 2014-PATIENT RETURNED FROM ER 2016-BOYFRIEND, KAHLIL, HERE. ASKED FOR RESTRAINTS TO BE OFF. EDUCATED ON THE RESTRAINTS AGAIN. PATIENT ASKED TO STAY BECAUSE "IF SHE WAKES UP, SHE WILL GO CRAZY AND I WILL NEED TO BE HERE." EDUCATED KAHLIL ON POLICY OF VISITATION. KAHLIL STATED "WELL MY NEIGHBOR IS DR. CHEN." KAHLIL STAYED UNTIL APPROX 2100. 2130- PATIENT SOILED BED, SMALL AMOUNT, COMPLETED LINEN CHANGE. 5802-RA-[id number] COMPLETED. PATIENT'S EYES CLOSED, WAKES TO TACTILE STIMULI. PATIENT WILL REPOSITIONED BUT HAS NOT TRIED TO GET OOB. 0000- PATIENT'S ABD FIRM, NOT URINATED SINCE EARLY AND WAS SMALL AMOUNT. INSERTED F/C PER POLICY. IMMEDIATE 600 ML RETURN. SECURED TO LEG. PATIENT WAS AWAKE AND EXPLAINED PROCEDURE. PATIENT ALERT, CONFUSED TO SITUATION. ABLE TO TALK WITH NURSE WITHOUT DIFFICULTY. PATIENT WAS CALM ENTIRE TIME. 0027- KAHLIL CALLED, PASSCODE GIVEN. UPDATE GIVEN. KAHLIL BECAME UPSET THAT PATIENT WOKE UP AND SHE DIDN'T CALL HIM. STATED HE WOULD BE HERE FOR VISITATION. 0300- RE-ASSESSMENT COMPLETECD. VSS. 0416- KAHLIL, BOYFRIEND HERE. REQUESTED A LIST OF MEDS GIVEN ENTIRE HOSPITAL STAY. STATED HE CAN REQUEST THEM THROUGH RECORDS. PATIENT STATED THAT HIS MOM WORKS FOR A JIG BOX OPERATOR AND ASKED IF SHE COULD FAX OVER A POA WITH HIM ON IT. 0630- EYES CLOSED, EASILY WAKES. VSS.
--- NOTE | 2020-04-24 07:00 | NUR ---
CARDIOLOGY CALLED FOR CONSULT AT 0400, NO RETURN CALL.
--- NOTE | 2020-04-24 10:18 | NUR ---
Nutrition follow-up: Pt NPO for ADELAIDE Labs reviewed Wt: 95# Pt has been agitated with nursing Maria Esther in use RDN will monitor pateints po intake closely RDN following.
--- NOTE | 2020-04-24 11:01 | NUR ---
6078 BOYFRIEND AT BEDSIDE INTRODUCED MYSELF WHILE SPEAKINIG ON PPHONE WITH NOK BOYFRIEND CAME OUT OF ROOM AND INTERUPTED MY PHONE CONVERSATION WHEN OBTAINING CONSENT FOR ADELAIDE. HE THEN CALLED THE NOK AND TOLD HIM NOT TO GIVE CONSENT DR VIERA AND MILENA, GUIDANCE DIRECTOR WENT INTO ROOM AND SPOKE WITH SAID BOYFRIEND GIVEN EXPLAINATIION TO WHY HE WAS NOT ASKED FOR CONSENT. ENCOURAGED HIM TO OBTAIN LEGAL COPY OF POA IF HE HAD ONE.
--- NOTE | 2020-04-24 11:07 | NUR ---
[address] KAY WITH DR BETTS PROVIDING SEDATION. OMAFRIENWilla WAS NOT WAITING IN ICU WAITING ROOM FOR DR KAY TO PROVIDE HIM WITH ADELAIDE RESULTS
--- NOTE | 2020-04-24 11:09 | NUR ---
8435 BOYFRIEND, KAHLIL RETURNED TO ROOM AND ASSISTED PATIENT WITH BREAKFAST PATIENT TOOK HER MEDS WITHOUT COMPLICATION GAG REFLEX WAS PRESENT
--- NOTE | 2020-04-24 13:02 | NUR ---
1100 RESTING QUIETLY WITH EYES CLOSED
--- NOTE | 2020-04-24 13:03 | NUR ---
1200 CAP BLOOD SUGAR 115 NO COVERAGE INDICATED BOYFRIEND AT BEDSIDE
--- NOTE | 2020-04-24 13:05 | NUR ---
1300 DR JONES ROUNDING ON PATIENT
--- NOTE | 2020-04-24 13:17 | CN ---
PATIENT NAME:ERIBERTO VILLANUEVA MEDICAL RECORD: [id number] : 69 LOCATION:[id number] ADMIT DATE: 04/20/20 ACCOUNT: [id number] CONSULTING PHYSICIAN: SHREE VARELA MD REFERRING PHYSICIAN: NANETTE VERDUGO MD DATE OF CONSULTATION: 04/23/2020 HISTORY OF PRESENT ILLNESS: The patient is sedated and not able to speak with me. I have reviewed the chart, I have also spoken with her nurse and have obtained significant and important information about her longitudinal history. At this point, given the circumstances of her relative improvement and then cognitive decline and her background history of substance abuse, I am going to ask for another toxicology screen and I am going to ask that she have only supervised visitation. I will return tomorrow to check on her and interview her to complete the evaluation. TRANSINT:[id number] Voice Confirmation ID: [id number] DOCUMENT ID: [id number] SHREE VARELA MD at 1317 CC: [id number] DICTATION DATE: 04/23/20 1416 MERCHANDISING SPECIALIST: 04/23/20 1648 ADM IN [facility] [address] [place] [address]
--- NOTE | 2020-04-24 14:41 | NUR ---
[address] JIMÉNEZ TO SEE IF HE WAS OK FOR A CTA SCAN. HE AGREED WITH DR JONES
--- NOTE | 2020-04-24 14:43 | NUR ---
[address] LAB FOR CTA LOOKING FOR CLOTS
--- NOTE | 2020-04-24 18:11 | NUR ---
1530 CTA NEGATIVE PLEASE SEE CTA REPORT
--- NOTE | 2020-04-24 18:13 | NUR ---
3622 DR VARLEA ROUNDING ON PATIENT
--- NOTE | 2020-04-24 18:14 | NUR ---
1730 PATIENTS BOYFRIEND AT BEDSIDE TO ASSIST WITH MEAL APPETITE POOR
--- NOTE | 2020-04-24 18:55 | NUR ---
PT BOYFRIEND AT BEDSIDE, VERY AGITATED, CLAIMING THAT "THE DOCOTRS HERE ARE LYING TO ME" LISTENS TO ALL CONCERNS AND ATTEMPTS MADE TO ANSWER QUESTIONS AND CALM VISITOR. PT BOYFRIEND APOLOGIZES FOR BEING IRRITATED. DENIES FURTHER NEEDS/QUESTIONS.
--- NOTE | 2020-04-24 20:24 | MORECARE ---
CASE MANAGEMENT DISCHARGE SUMMARY PATIENT: ERIBERTO VILLANUEVA UNIT: [id number] ADM DATE: 04/20/20 AGE: 54 : [birth year] SEX: F ROOM/BED: D.2305 AUTHOR: NOEMIDOC PHYSICIAN: REFERRING PHYSICIAN: NANETTE VERDUGO MD DATE OF SERVICE: 04/24/20 Discharge Plan Patient Name: ERIBERTO VILLANUEVA Facility: [facility]:[place] : 1965 Planned Disposition: Home Anticipated Discharge Date: Discharge Date: Expected LOS: Initial Reviewer: [id number] Initial Review Date: 04/20/2020 Generated: 04/24/20 9:24 pm Comments DCP- Discharge Planning Updated by [email or web address]: Lois Marinelli on 04/24/20 7:[address] Patient Name: ERIBERTO VILLANUEVA Admission Status: ER Accout number: [id number] Admission Date: 04-20-2020 : 1965 Admission Diagnosis:ACUTE RESPIRATORY FAILURE WITH HYPOXIA Attending: NANETTE VERDUGO Current LOS: 4 Anticipated DC Date: Planned Disposition: Home Primary Insurance: [employer] MANAGED MEDICAID Discharge Planning Comments: CM met with patient and significant other Kahlil Briones to complete initial dc planning assessment. CM educated patient on the CM role and verbal consent given by patient to complete assessment. Patient lives at home with Kahlil. Patient is independent. At discharge patient plans to return home and feels this is a safe discharge. CM discussed availability of home health, rehab services, and medical equipment. Patient will have family to transport home. Patient denied known discharge needs at this time. CM will continue to follow and will assist as needed with dc plans/needs. Psychiatric Social Worker Supervisor: Lois Marinelli DCPIA - Discharge Planning Initial Assessment Updated by [email or web address]: Lois Marinelli on 04/24/20 8:20 pm * Is the patient Alert and Oriented? No * How many steps to enter\exit or inside your home? 5-6 * PCP switching ? [facility] * Pharmacy [facility] * Preadmission Environment Home with Family * ADLs Independent * Equipment None * List name and contact numbers for known caregivers / representatives who currently or will assist patient after discharge: KAHLIL BRIONES - SO- [phone] * Verbal permission to speak to the caregivers and representatives has been obtained from the patient. Yes * Community resources currently utilized None * Additional services required to return to the preadmission environment? No * Can the patient safely return to the preadmission environment? Yes * Has this patient been hospitalized within the prior 30 days at any hospital? Yes Patient Name: ERIBERTO VILLANUEVA Page [phone] at 2023 All edits/amendments must be made on the electronic document DICTATION DATE: 04/24/202023 OPERATIONS PROJECT MANAGER: NAKIA 04/24/202023 RPT#: [id number] DC DATE: STATUS: ADM IN [facility] [address] [place] [address] END OF REPORT
--- NOTE | 2020-04-24 21:17 | NUR ---
HS MEDS GIVEN, TOLERATED WELL. REPOSITIONED FOR COMFORT.
--- NOTE | 2020-04-24 23:45 | NUR ---
REASSESSMENT COMPLETE, SEE FLOWSHEET FOR ALL FINDINGS. PT REPOSITIONED FOR COMFORT. VSS, CPOC.
[2020-04-25] VITALS (24 sets, daily range): BP systolic 110–165; BP diastolic 63–121
--- NOTE | 2020-04-25 03:45 | NUR ---
REASSESSMENT COMPLETE, PT LETHARGIC BUT ANSWERS MOST QUESTIONS, FREQUENTLY CLOSES EYES ONLY OPENING THEM WHEN ASKED TO. SPEECH SLURRED. PT REPOSITIONED WITH MINIMAL ASSISTANCE. VSS, CPOC.
--- NOTE | 2020-04-25 04:00 | NUR ---
VISITOR AT BEDSIDE (PT BOYFRIEND) DENIES NEEDS/QUESTIONS AT THIS TIME.
[2020-04-25 04:46] LABS: BASOPHILS 0 % (0-2); EOSINOPHILS 0 % (0-7); HEMOGLOBIN 14.6 g/dL (12-16); IMMATURE GRANULOCYTES 0.2 % (0-5); LYMPHOCYTES 3.8 % (15-50); MCH 28.9 pg (26.0-34.0); MCHC 29.8 g/dL (31.0-37.0); MCV 96.8 fL (80.0-100.0); MEAN PLATELET VOLUME 10.5 fL (7.4-10.4); MONOCYTES 6.3 % (2-11); NEUTROPHILS 89.7 % (40-80); PLATELET COUNT 270 10x3/uL (130-400); RBC 5.06 10x6/uL (4.00-5.40); RDW 16.1 % (11.5-14.5)
[2020-04-25 05:00] LABS: WBC 9.4 10x3/uL (4.8-10.8)
[2020-04-25 05:10] LABS: ALBUMIN 2.7 g/dL (3.4-5.0); BILIRUBIN - TOTAL 0.4 mg/dL (0.2-1.3); CALCIUM 8.3 mg/dL (8.5-10.1); CARBON DIOXIDE 33.1 mmol/L (21.0-32.0); CREATININE - SERUM 1.2 mg/dL (0.6-1.3); MAGNESIUM - SERUM 1.8 mg/dL (1.8-2.4); PROTEIN - SERUM 6.1 g/dL (6.4-8.2)
[2020-04-25 05:12] LABS: ANION GAP 7.6 mmol/L (8-16); POTASSIUM - SERUM 3.7 mmol/L (3.5-5.1)
--- NOTE | 2020-04-25 06:23 | NUR ---
PT SITTING UP WITH EYES OPEN. ANSWERING QUESTIONS APPROPRIATELY. PT REPOSITIONED FOR COMFORT WITH MINIMAL ASSISTANCE. VSS, DENIES PAIN. DENIES NEEDS. CALL LIGHT WITHIN PT REACH. ROOM VISIBLE FROM NURSES STATION. CPOC
--- NOTE | 2020-04-25 09:47 | NUR ---
0700 BEDSIDE REPORT RECEIVED FROM GAGE PIPE THREADING MACHINE OPERATOR COMPLETE ANSWERS QUESTIONS CORRECTLY.
--- NOTE | 2020-04-25 09:48 | NUR ---
0800 PATIENTS BOYFRIEND AT BEDSIDE WAKING PATIENT UP. SAID HE BROUGHT HER BREAKFAST AT 4 AM THIS MORNING. ACCORDING TO UNCLAIMED PROPERTY MANAGER, HE STATED EVERYONE IS LYING TO HIM.
--- NOTE | 2020-04-25 09:54 | NUR ---
0900 BILLIEIENWilla ASKS WHAT THE MEDS ARE THAT I BROUGHT TO THE PATIENT. HE STATED THAT SHE DOESNT NEED THE LIBRUIM. RN INFORMED HIM THAT THE PATIENT HAS THE SAY IF SHE WILL TAKE THE MEDICINE OR NOT. SHE YELLED OUT THE SHE DOESNT WANT THE LIBRIUM PATIENT IS SHARP AND QUICK TO ANGER AND VERY AGITATED. PATIENT YELLS AT BOYFRIEND SAYING 'GO AWAY' INFORMED DR ZAVALA OF SITUATION.
--- NOTE | 2020-04-25 10:19 | NUR ---
1000 INFORMED THAT VISITATION WAS OVER NOW. HE WAS WANTING RN TO CALL HIM AFTER THE DR MADE ROUNDS FOR AN UPDATE I ASKED HIM IF SHE HAD HER CELL PHONE SO SHE COULD CALL HIM HE STATED HER CELL PHONE WAS IN HIS TRUCK. I MADE THE SUGGESTION THAT HE BRING HER PHONE UP TO HER ON HIS NEXT VISITATION. HE BECAME AGITATED SAYING THAT THE NIGHT NURSE SAID SHE WAS GOING HOME TODAY. I INFORMED HE THAT CURRENTLY I DIDNT HAVE ANY DISCHARGE ORDERS AND THAT THE DR HASN'T ROUNDED ON HER YET, SO I COULDNT GUARANTEE ANYTHING HE BECAME CONFRONTATIONAL REPEATING THAT THE NIGHT NURSE SAID SHE WAS GOING HOME HE GOT MAD AND STORMED OUT OF ICU. SUN. CHARGE NURSE CALLED SHARLA ABOUT HIS BEHAVIOR
--- NOTE | 2020-04-25 14:05 | NUR ---
1230 REPORT GIVEN TO EUSEBIO PORRAS
--- NOTE | 2020-04-25 14:50 | CN ---
PATIENT NAME:ERIBERTO VILLANUEVA MEDICAL RECORD: [id number] : 69 LOCATION:[facility].2305 ADMIT DATE: 04/20/20 ACCOUNT: [id number] CONSULTING PHYSICIAN: SHREE VARELA MD REFERRING PHYSICIAN: NANETTE VERDUGO MD DATE OF CONSULTATION: 04/24/2020 IDENTIFYING DATA: The patient is 54 years old and she is admitted to the hospital on a voluntary basis. CHIEF COMPLAINT: Confusion. HISTORY OF PRESENT ILLNESS: The patient was sedated yesterday. She is more awake today. She is denying any thoughts of harming herself or others. She denies psychotic symptoms. She is fully oriented. She says she has never had any kind of psychiatric history and never had any kind of problems with substance abuse including alcohol. She does relate that she has had some anxiety and has taken Xanax for that condition. ASSESSMENT: 1. Adjustment disorder with mixed emotional features. 2. Generalized anxiety disorder versus panic disorder. PLAN: At this time, I see no evidence of acute or direct dangerousness. Given the circumstances during this hospitalization with the acute mental status changes, I do not have a high degree of suspicion that something was taken that was not given to her by nursing staff. I would recommend that for the duration of this hospital stay that the visitations with her boyfriend be supervised. I do not see evidence of a thinking disorder or mood disorder, nor do I see any evidence of acute dangerousness. With regard to the possibility of a substance use disorder, I am suspicious that there is one, but she is denying that to me. TRANSINT:[id number] Voice Confirmation ID: [id number] DOCUMENT ID: [id number] SHREE VARELA MD at 1450 CC: [id number] DICTATION DATE: 04/24/20 1426 FOUNTAIN PEN TURNER: 04/24/20 2246 ADM IN [place] [id number] [place] [address]
--- NOTE | 2020-04-25 15:03 | TEE ---
PATIENT:ERIBERTO VILLANUEVA MEDICAL RECORD: [id number] LOCATION:[place] [address] AGE OF PATIENT: 54 ADMISSION DATE: 04/20/20 SEX: F REFERRING PHYSICIAN: INTERPRETING PHYSICIAN: NEGRO KAY MD TRANSESOPHAGEAL ECHOCARDIOGRAM Date: 04/24/20 ADELAIDE CHARGE Y INDICATIONS: VEGITATION ON AV PREMEDICATIONS: PATIENT'S RESPONSE PROCEDURE DOPPLER MEASUREMENTS: LVIT LA PA 76 RA LVOT 142 RVOT 82 Asc. Ao 147 AV Gradient Peak 8.6 AV Mean 4.9 AV Area 1.3 MV Gradient Peak 9.0 MV Mean 5.9 MV Area INTERPRETATION: Doppler: 2-D: COLOR FLOW DOPPLER NORMAL SALINE STUDY: MISCELLANOUS: DIAGNOSIS: PLAN: Screen Maker:3 Dr. Carter Senior Energy Analyst: Eduardo RECINOS COMMENTS: PACS DATE OF SERVICE: 04/24/2020 PROCEDURE: Transesophageal note. DESCRIPTION OF PROCEDURE: After general sedation via TIVA via anesthesia, transesophageal Omniplane probe was placed in the distal esophagus and proximal stomach without difficulty. No LVH. LV internal dimension is normal. Wall motion is normal. EF is greater than or equal to 55%. Aortic valve is tricuspid. There is obvious 0.7 cm x 0.7 cm vegetation noted on the noncardiac TRANSESOPHAGEAL ECHOCARDIOGRAM REPORT [id number] ERIBERTO VILLANUEVA cusp. This is free flowing. There is no evidence of AI. Good valve excursion. Otherwise, left atrium appears normal. Mitral valve shows prolapse of the anterior leaflet, but only trace to mild MR. Right-sided chambers are grossly normal. Trace TR. 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 No criteria currently for valve intervention. Will need 4 weeks of antibiotics as well as repeat 2D study at the end of antibiotics as well as negative cultures. TRANSINT:[id number] Voice Confirmation ID: [id number] DOCUMENT ID: [id number] at 1503 CC: [id number] DICTATION DATE: 04/24/20 0945 ZOO VETERINARIAN: 04/24/20 1022 ADM IN [facility] [address] [id number]
--- NOTE | 2020-04-25 16:13 | NUR ---
DR BHATIA AT BED SIDE. QUESTIONING THE PT ABOUT DRUG USE. PT TELLS HIM HE IS NOT ALLOWED IN THE ROOM AND DOESNT WANT TO SPEAK WITH HIM. DR BHATIA SUGGESTED TO ME TO ALLOW VISITORS UNDER CLOSE SUPERVISION DUE TO NOT TRUSTING THE SITUATION. WILL CONTINEU TO MONITOR PT.
--- NOTE | 2020-04-25 17:28 | NUR ---
I HAVE DISCUSSED WITH PT AND THE PT BOYFRIEND WHAT DR. MIRAMONTES HAS RECOMMENDED AND ARE CURRENTLY WAITING DR. JONES TO DISCUSS FURTHER PLAN OF CARE. WILL CONTINUE TO MONITOR PT.
--- NOTE | 2020-04-25 19:45 | NUR ---
PT AOX4, VSS, NO C/O PAIN. UNLABORED RESPIRATIONS, LUNG SOUNDS CLEAR/DIMINISHED. SPO2 97 ON 2L HFNC. S1S2 HEARD, PERIPHERAL PULSES PRESENT. BOWEL SOUNDS ACTIVE IN ALL QUADRANTS. GARSIA CATH INTACT WITH YELLOW URINE TO BEDSIDE DRAINAGE. BRUISING AND SCABBING NOTED TO L EYE/EYEBROW. PT REPOSITIONED FOR COMFORT, DENIES FURTHER NEEDS. CALL LIGHT WITHIN PT REACH. CPOC.
--- NOTE | 2020-04-25 20:00 | NUR ---
BOYFRIEND AT BEDSIDE, DENIES NEEDS/QUESTIONS. PT RESTING QUIETLY, DENIES NEEDS. VSS, CALL LIGHT WITHIN PT REACH. CPOC.
--- NOTE | 2020-04-25 22:20 | NUR ---
HS MEDS GIVEN WITH NO DIFFICULTY. PT REPOSITIONED FOR COMFORT WITH PARTIAL LINEN CHANGE PROVIDED. VSS, DENIES FURTHER NEEDS.
[2020-04-26] VITALS (12 sets, daily range): BP systolic 86–147; BP diastolic 52–89
--- NOTE | 2020-04-26 00:37 | NUR ---
I have reviewed this patient and I concur with the Shift Assessment completed by the Licensed Practical Nurse today this shift.
--- NOTE | 2020-04-26 01:40 | NUR ---
PT RSTING QUIETLY, REPOSITIONED SELF INDEPENDENTLY. VSS, NO S/S OF PAIN OR ACUTE DISTRESS NOTED. CALL LIGHT WITHIN PT REACH. BED ALARM ON. CPOC.
--- NOTE | 2020-04-26 03:45 | NUR ---
REASSESSMENT COMPLETE, NO NEW CHANGES AT THIS TIME. PT STATES SHE WANTS HER BOYFRIEND, INFORMED PT VISITING HOURS BEGIN IN 30 MINUTES. PT CALM AND COOPERATIVE. DENIES FURTHER NEEDS. VSS, NO C/O PAIN, CALL LIGHT WITHIN PT REACH. CPOC.
[2020-04-26 05:01] LABS: BASOPHILS 0 % (0-2); EOSINOPHILS 0.7 % (0-7); HEMATOCRIT 41.2 % (36.0-48.0); HEMOGLOBIN 12.1 g/dL (12-16); IMMATURE GRANULOCYTES 0.2 % (0-5); LYMPHOCYTES 16.9 % (15-50); MCH 28.7 pg (26.0-34.0); MCHC 29.4 g/dL (31.0-37.0); MCV 97.9 fL (80.0-100.0); MEAN PLATELET VOLUME 10.7 fL (7.4-10.4); MONOCYTES 11.8 % (2-11); NEUTROPHILS 70.4 % (40-80); PLATELET COUNT 219 10x3/uL (130-400); RBC 4.21 10x6/uL (4.00-5.40); RDW 16.2 % (11.5-14.5); WBC 9.2 10x3/uL (4.8-10.8)
[2020-04-26 05:12] LABS: ALBUMIN 2.1 g/dL (3.4-5.0); ANION GAP 6.9 mmol/L (8-16); BILIRUBIN - TOTAL 0.27 mg/dL (0.2-1.3); CALCIUM 7.8 mg/dL (8.5-10.1); CARBON DIOXIDE 31.7 mmol/L (21.0-32.0); CREATININE - SERUM 1.1 mg/dL (0.6-1.3); MAGNESIUM - SERUM 1.6 mg/dL (1.8-2.4); POTASSIUM - SERUM 3.6 mmol/L (3.5-5.1); PROTEIN - SERUM 4.9 g/dL (6.4-8.2)
--- NOTE | 2020-04-26 06:30 | NUR ---
PT SITTING UP IN BED WATCHING TV WITH NO COMPLAINTS AT THIS TIME. VSS, UNLABORED RESPIRATIONS. DENIES NEEDS.
--- NOTE | 2020-04-26 10:59 | NUR ---
Nutrition follow-up: Pt is aggitated this morning Diet: REgular as tolerated WT: 100# Will continue to provide food choices with selective menus and honor food preferences. Will offer nutritional supplements. RDN following.
--- NOTE | 2020-04-26 13:00 | PN ---
PATIENT:ERIBERTO VILLANUEVA MEDICAL RECORD: [id number] LOCATION:[facility] D.230 ADMISSION DATE: 04/20/20 PROGRESS NOTE DATE OF SERVICE: 04/25/2020 SUBJECTIVE: The patient's case was discussed with her nurse and her attending physician. OBJECTIVE: The patient was interviewed and it did not go very well. She was deeply offended by the questions I asked her about substance abuse and told me that she did not like my attitude and that I was never to come back into her room. This was despite my attempting to interview her in the most gentle and nonconfrontational way I possibly could. She is not having any psychotic symptoms. She is not homicidal or suicidal. She is oriented. She does not want any kind of substance abuse treatment and does not feel she has a substance abuse problem. ASSESSMENT: 1. Adjustment disorder with mixed emotional features. 2. Generalized anxiety disorder. 3. Cluster B personality traits. 4. Amphetamine use disorder. PLAN: The patient freely admits to using methamphetamine. Her urine drug screen was positive for this and I thought that perhaps she may have been using some sort of a psychostimulant for attention deficit disorder, but that is not the case and indeed I checked her prescription drug monitoring program profile and it is negative for any controlled substances. She says that she has been using methamphetamine for many years and does not feel it is a problem and does not want any kind of treatment. When asked about intravenous use it the point at which she became very defensive and angry. She insists she has never done this. I explained to her that the kind of infection she has in her heart is common among people who use methamphetamine and she did not let me finish and became angry, saying that I was accusing her of lying and to leave the room. This situation is complex. I suspect the patient almost certainly has been using intravenous drugs with there being a few other explanations for her endocarditis and she is freely admitting she uses methamphetamine and has for a long time. Also, given the condition that she was in with her being so confused and then so sedated for the past couple of days, that is the pattern that is consistent with heavy use of methamphetamine and so is her irritability. With the first principal of medicine being do no harm and given the circumstantial evidence of intravenous drug use, I would director of counseling against putting a PICC line in her and sending her home. I know this complicates the situation and it is certainly above my area of expertise, but if there is some other way of treating this condition, I think that is what should be done. She is not going to go to any kind of substance abuse treatment, perhaps recommending a stay on a long term unit where her access and use of the PICC line is supervised or perhaps going to an outpatient setting to receive the antibiotics is possible. I am not sure what options would be available therapeutically, but I think that it would be a dangerous situation for someone who almost certainly has been using intravenous methamphetamine to be sent home with ready access through this indwelling line. I will be happy to come back and see her as I am the only psychiatrist in the hospital, but I will not go back and see her unless I am requested to do so by her attending physician since she has made it clear that PROGRESS NOTE [id number] ERIBERTO VILLANUEVA she does not want to see me again. TRANSINT:[id number] Voice Confirmation ID: [id number] DOCUMENT ID: [id number] SHREE VARELA MD at 1300 CC: [id number] DICTATION DATE: 04/25/20 1619 MOTION PICTURE FILM EXAMINER: 04/26/20 0045 ADM IN [facility] [address] [id number]
--- NOTE | 2020-04-26 13:18 | MORECARE ---
CASE MANAGEMENT DISCHARGE SUMMARY PATIENT: ERIBERTO VILLANUEVA UNIT: [id number] ADM DATE: 04/20/20 AGE: 54 : [birth year] SEX: F ROOM/BED: D.2305 AUTHOR: NOEMIDOC PHYSICIAN: REFERRING PHYSICIAN: NANETTE VERDUGO MD DATE OF SERVICE: 04/26/20 Discharge Plan Patient Name: ERIBERTO VILLANUEVA Facility: [facility]:[place] : 1965 Planned Disposition: Home Anticipated Discharge Date: Discharge Date: Expected LOS: Initial Reviewer: [email or web address] Initial Review Date: 04/20/2020 Generated: 04/26/20 2:17 pm Comments DCP- Discharge Planning Updated by [email or web address]: Lois Marinelli on 04/24/20 7:[address] Patient Name: ERIBERTO VILLANUEVA Admission Status: ER Accout number: [id number] Admission Date: 04-20-2020 : 1965 Admission Diagnosis:ACUTE RESPIRATORY FAILURE WITH HYPOXIA Attending: NANETTE VERDUGO Current LOS: 4 Anticipated DC Date: Planned Disposition: Home Primary Insurance: [employer] MANAGED MEDICAID Discharge Planning Comments: CM met with patient and significant other Kahlil Briones to complete initial dc planning assessment. CM educated patient on the CM role and verbal consent given by patient to complete assessment. Patient lives at home with Kahlil. Patient is independent. At discharge patient plans to return home and feels this is a safe discharge. CM discussed availability of home health, rehab services, and medical equipment. Patient will have family to transport home. Patient denied known discharge needs at this time. CM will continue to follow and will assist as needed with dc plans/needs. Test Bore Helper: Lois Marinelli DCPIA - Discharge Planning Initial Assessment Updated by [email or web address]: Lois Marinelli on 04/24/20 8:20 pm * Is the patient Alert and Oriented? No * How many steps to enter\exit or inside your home? 5-6 * PCP switching ? AYLIN * Pharmacy [facility] * Preadmission Environment Home with Family * ADLs Independent * Equipment None * List name and contact numbers for known caregivers / representatives who currently or will assist patient after discharge: KAHLIL BRIONES - SO- [phone] * Verbal permission to speak to the caregivers and representatives has been obtained from the patient. Yes * Community resources currently utilized None * Additional services required to return to the preadmission environment? No * Can the patient safely return to the preadmission environment? Yes * Has this patient been hospitalized within the prior 30 days at any hospital? Yes External Providers External Provider: [facility] Next Contact Date: Service Request Date: Service Type: Resolution: Reviewer: Comments: Last DP export: 04/24/20 7:24 p Patient Name: ERIBERTO VILLANUEVA Page [phone] at 1318 All edits/amendments must be made on the electronic document DICTATION DATE: 04/26/201316 BRAND DEVELOPMENT MANAGER: NAKIA 04/26/201316 RPT#: [id number] DC DATE: STATUS: ADM IN [facility] [address] [place] [address] END OF REPORT
--- NOTE | 2020-04-26 13:48 | MORECARE ---
CASE MANAGEMENT DISCHARGE SUMMARY PATIENT: ERIBERTO VILLANUEVA UNIT: [id number] ADM DATE: 04/20/20 AGE: 54 : [birth year] SEX: F ROOM/BED: D.2305 AUTHOR: NOEMI,DOC PHYSICIAN: REFERRING PHYSICIAN: NANETTE VERDUGO MD DATE OF SERVICE: 04/26/20 Discharge Plan Patient Name: ERIBERTO VILLANUEVA Facility: [facility]:[place] : 1965 Planned Disposition: Home Anticipated Discharge Date: Discharge Date: Expected LOS: Initial Reviewer: [email or web address] Initial Review Date: 04/20/2020 Generated: 04/26/20 2:47 pm Comments DCP- Discharge Planning Updated by [email or web address]: Jessica Conner on 04/26/20 12:[address] Patient Name: ERIBERTO VILLANUEVA Encounter No: [id number] : 1965 Primary Insurance: [facility] MANAGED MEDICAID Anticipated DC Date: Planned Disposition: Home External Planned Provider: : DCP follow-up note: Patient and significant other in agreement with discharge plan. Patient will discharge to home with appointment for daily Outpatient IV antibiotics. Patient will also need home oxygen. Patient and significant other instructed CM to set O2 up with any DME that can get here the fastest. Patient in a hurry to discharge. Patient also requested afternoon appointments with outpatient for IV antibiotics. Patient Choice form signed. CM called and spoke with [facility] about Oxygen referral. Records faxed as requested. CM called Outpatient scheduling to arrange daily IV Vanc 1.25G with weekly BMP and Vanc Trough-Pharmacy to manage Vanc dose. Faxed order as requested. Patient will need to check in at outpatient at 13:00 daily Friday thru Friday for 1:30 appointment and at ER Saturdays and Sundays. CM informed patient and Signiant other of appointment time and directions. Both voiced understanding. Awaiting Oxygen delivery. Jessica Conner DCP- Discharge Planning Updated by [email or web address]: Lois Marinelli on 04/24/20 7:[address] Patient Name: ERIBERTO VILLANUEVA Admission Status: ER Accout number: [id number] Admission Date: 04-20-2020 : 1965 Admission Diagnosis:ACUTE RESPIRATORY FAILURE WITH HYPOXIA Attending: NANETTE VERDUGO Current LOS: 4 Anticipated DC Date: Planned Disposition: Home Primary Insurance: [employer] MANAGED MEDICAID Discharge Planning Comments: CM met with patient and significant other Kahlil Briones to complete initial dc planning assessment. CM educated patient on the CM role and verbal consent given by patient to complete assessment. Patient lives at home with Kahlil. Patient is independent. At discharge patient plans to return home and feels this is a safe discharge. CM discussed availability of home health, rehab services, and medical equipment. Patient will have family to transport home. Patient denied known discharge needs at this time. CM will continue to follow and will assist as needed with dc plans/needs. Medical Assembly: Lois Marinelli DCPIA - Discharge Planning Initial Assessment Updated by [email or web address]: Lois Marinelli on 04/24/20 8:20 pm * Is the patient Alert and Oriented? No * How many steps to enter\exit or inside your home? 5-6 * PCP switching ? AYLIN * Pharmacy [facility] * Preadmission Environment Home with Family * ADLs Independent * Equipment None * List name and contact numbers for known caregivers / representatives who currently or will assist patient after discharge: KAHLIL BRIONES - SO- [phone] * Verbal permission to speak to the caregivers and representatives has been obtained from the patient. Yes * Community resources currently utilized None * Additional services required to return to the preadmission environment? No * Can the patient safely return to the preadmission environment? Yes * Has this patient been hospitalized within the prior 30 days at any hospital? Yes Last DP export: 04/26/20 12:18 p Patient Name: ERIBERTO VILLANUEVA Page [phone] at 1348 All edits/amendments must be made on the electronic document DICTATION DATE: 04/26/20 1347 CATTLE RANCHER: NAKIA 04/26/20 1347 RPT#: [id number] DC DATE: STATUS: ADM IN [facility] [address] [place] [address] END OF REPORT
--- NOTE | 2020-04-27 09:03 | MORECARE ---
CASE MANAGEMENT DISCHARGE SUMMARY PATIENT: ERIBERTO VILLANUEVA UNIT: [id number] ADM DATE: 04/20/20 AGE: 54 : 69 SEX: F ROOM/BED: D.2303 AUTHOR: NOEMI,DOC PHYSICIAN: REFERRING PHYSICIAN: NANETTE VERDUGO MD DATE OF SERVICE: 04/27/20 Discharge Plan Patient Name: ERIBERTO VILLANUEVA Facility: [facility]:[place] : 1965 Planned Disposition: Home Anticipated Discharge Date: Discharge Date: 04/26/2020 Expected LOS: Initial Reviewer: [email or web address] Initial Review Date: 04/20/2020 Generated: 04/27/20 10:03 am Comments DCP- Discharge Planning Updated by [email or web address]: Jessica Conner on 04/26/20 12:[address] Patient Name: ERIBERTO VILLANUEVA Encounter No: [id number] : 1965 Primary Insurance: [facility]ICAID Anticipated DC Date: Planned Disposition: Home External Planned Provider: : DCP follow-up note: Patient and significant other in agreement with discharge plan. Patient will discharge to home with appointment for daily Outpatient IV antibiotics. Patient will also need home oxygen. Patient and significant other instructed CM to set O2 up with any DME that can get here the fastest. Patient in a hurry to discharge. Patient also requested afternoon appointments with outpatient for IV antibiotics. Patient Choice form signed. CM called and spoke with Medina harris [facility] about Oxygen referral. Records faxed as requested. CM called Outpatient scheduling to arrange daily IV Vanc 1.25G with weekly BMP and Vanc Trough-Pharmacy to manage Vanc dose. Faxed order as requested. Patient will need to check in at outpatient at 13:00 daily Friday thru Friday for 1:30 appointment and at ER Saturdays and Sundays. CM informed patient and Signiant other of appointment time and directions. Both voiced understanding. Awaiting Oxygen delivery. Jessica Conner DCP- Discharge Planning Updated by [email or web address]: Lois Marinelli on 04/24/20 7:[address] Patient Name: ERIBERTO VILLANUEVA Admission Status: ER Accout number: [id number] Admission Date: 04-20-2020 : 1965 Admission Diagnosis:ACUTE RESPIRATORY FAILURE WITH HYPOXIA Attending: NANETTE VERDUGO Current LOS: 4 Anticipated DC Date: Planned Disposition: Home Primary Insurance: [employer] MEDICAID Discharge Planning Comments: CM met with patient and significant other Kahlil Briones to complete initial dc planning assessment. CM educated patient on the CM role and verbal consent given by patient to complete assessment. Patient lives at home with Kahlil. Patient is independent. At discharge patient plans to return home and feels this is a safe discharge. CM discussed availability of home health, rehab services, and medical equipment. Patient will have family to transport home. Patient denied known discharge needs at this time. CM will continue to follow and will assist as needed with dc plans/needs. Lead Installer: Lois Marinelli DCPIA - Discharge Planning Initial Assessment Updated by [email or web address]: Lois Marinelli on 04/24/20 8:20 pm * Is the patient Alert and Oriented? No * How many steps to enter\\exit or inside your home? 5-6 * PCP switching ? AYLIN * Pharmacy [facility] * Preadmission Environment Home with Family * ADLs Independent * Equipment None * List name and contact numbers for known caregivers / representatives who currently or will assist patient after discharge: KAHLIL BRIONES - SO- [phone] * Verbal permission to speak to the caregivers and representatives has been obtained from the patient. Yes * Community resources currently utilized None * Additional services required to return to the preadmission environment? No * Can the patient safely return to the preadmission environment? Yes * Has this patient been hospitalized within the prior 30 days at any hospital? Yes Coverage Notice Reviewer: [id number] Fazal Conner Notice Issued Date-Time: 04/26/2020 13:22 Notice Type: Patient Choice Letter Notice Delivered To: Other Relationship to Patient: Other Relationship Ship Engineer Name: Kahlil BrionesELOISE Delivery Method: HAND - Hand Delivered Juliette Days: Prior Verbal Notification: Recipient Understood Notice: Yes Recipient Signature: Yes Med Rec Note Co-signed by Attending: Coverage Notice Comment: "Any DME" Patient asked boyfriend to sign form for her. Last DP export: 04/26/20 12:48 p Patient Name: ERIBERTO VILLANUEVA Page [id number] at 0903 All edits/amendments must be made on the electronic document DICTATION DATE: 04/27/20901 WOOD MECHANIST: NAKIA 04/27/20901 RPT#: [id number] DC DATE:04/26/20 STATUS: DIS IN [facility] [address], [place] [address] END OF REPORT
[2020-04-28 10:11] LABS: UDSC - AMPHET Positive (Cutoff=1000); UDSC - BARB Negative ng/mL (Cutoff=300); UDSC - BENZO Negative (Cutoff=300); UDSC - COC Negative ng/mL (Cutoff=300); UDSC - METH Negative ng/mL (Cutoff=300); UDSC - OPIATES Negative ng/mL (Cutoff=300); UDSC - PCP Negative ng/mL (Cutoff=25); UDSC - PROPOXY Negative ng/mL (Cutoff=300); UDSC - THC Negative ng/mL (Cutoff=50)
== END 2020-04-26 15:01 | disposition home or self-care (01) | DRG 189 ==
LOC: D.ER 15:13 → D.M2 17:44 → D.ICU 17:44 → D.M2 04-21 16:46 → D.ICU 04-22 13:48
PROVIDERS: Emergency Medicine; Family Medicine; Internal Medicine Nephrology; Internal Medicine Pulmonary Disease; ADMIT Emergency Medicine; ATTEND Emergency Medicine
DX: J96.01 Acute respiratory failure with hypoxia (principal); E43 Unspecified severe protein-calorie malnutrition; J44.1 Chronic obstructive pulmonary disease with (acute) exacerbation; F17.203 Nicotine dependence unspecified, with withdrawal; F15.20 Other stimulant dependence, uncomplicated; N17.9 Acute kidney failure, unspecified; Z68.1 Body mass index [BMI] 19.9 or less, adult; J96.02 Acute respiratory failure with hypercapnia; I10 Essential (primary) hypertension; R73.9 Hyperglycemia, unspecified; F12.90 Cannabis use, unspecified, uncomplicated; J20.9 Acute bronchitis, unspecified; E87.6 Hypokalemia; R00.0 Tachycardia, unspecified; I95.9 Hypotension, unspecified

== ENCOUNTER 2020-04-27 08:00 | Outpatient (CLI) | payer OTHER ==
[~2020-04-27 08:00] MED LIST: CATAPRES0.2 MG PO; LISINOPRIL40 MG PO; PROCARDIA XL60 MG PO; XANAX0.5 MG PO
[2020-04-28 14:32] VITALS: BMI 18.3
== END 2020-04-27 08:01 | disposition home or self-care (01) ==
LOC: D.OPS 08:00
PROVIDERS: ATTEND Family Medicine
DX: I38 Endocarditis, valve unspecified (principal)

== ENCOUNTER 2020-04-28 13:26 | Outpatient (CLI) | payer OTHER ==
[~2020-04-28] VITALS: Ht 157.5 cm; Wt 45.5 kg
[2020-04-28 14:09] LABS: ANION GAP 3.9 mmol/L (8-16); CALCIUM 9.1 mg/dL (8.5-10.1); CARBON DIOXIDE 39.9 mmol/L (21.0-32.0); CREATININE - SERUM 0.9 mg/dL (0.6-1.3); POTASSIUM - SERUM 3.8 mmol/L (3.5-5.1); VANCOMYCIN - TROUGH 4.5 ug/mL (10.0-20.0)
[2020-04-28 14:32] VITALS: BP 155/95; Ht 157.5 cm; Wt 45.5 kg
== END 2020-04-28 15:39 | disposition home or self-care (01) ==
LOC: D.OPS 13:26
PROVIDERS: ATTEND Family Medicine
DX: I38 Endocarditis, valve unspecified (principal)

== ENCOUNTER → 2020-04-29 13:28 | Outpatient (CLI) | payer OTHER ==
[2020-04-28 14:32] VITALS: BMI 18.3
== END | disposition home or self-care (01) ==
LOC: D.OPS
PROVIDERS: ATTEND Family Medicine
DX: I38 Endocarditis, valve unspecified (principal)

== ENCOUNTER 2020-05-03 13:16 | Outpatient (CLI) | payer OTHER ==
[2020-04-28 14:32] VITALS: BMI 18.3
[2020-05-03 14:17] LABS: CALCIUM 9.6 mg/dL (8.5-10.1); POTASSIUM - SERUM 3.9 mmol/L (3.5-5.1)
[2020-05-03 14:41] LABS: ANION GAP 3.6 mmol/L (8-16)
[2020-05-03 14:43] LABS: CARBON DIOXIDE 42.3 mmol/L (21.0-32.0)
--- NOTE | 2020-05-03 16:23 | NUR ---
1600 IV REMOVED AND PT DISCHARGED WITH INSTRUCTIONS
== END 2020-05-03 16:05 | disposition home or self-care (01) ==
LOC: D.OPS 13:16
PROVIDERS: ATTEND Family Medicine
DX: I38 Endocarditis, valve unspecified (principal)